=== PATIENT | female | born 1955 | race Caucasian/White ===

== ENCOUNTER 2016-09-16 22:48 | Emergency (ER) | payer BC, OTHER ==
[~2016-09-16] VITALS: Ht 177.8 cm; Wt 109.1 kg
[~2016-09-16 22:48] MED LIST: ALTACE10 M1 PO; ASPIRIN 32325 MG/TA1 PO; ASPIRIN 81M81 MG/TA2 PO; ESTRACE0.5 MG PO; ESTRATEST H.S.1 TAB PO; GLUCOPHAGE1000 MG PO; HCTZ 25MG25 MG PO; METFORMIN500 MG PO; NEXIUM 40MG40 MG PO; NORCO 325 MG-7.1 TAB PO; SYNTHROID0.05 MG PO; SYNTHROID0.075 MG/T PO
[2016-09-16 22:50] VITALS: TEMP 97.7
[2016-09-17] MEDS ORDERED: PREDNISONE20 MG PO (00:28)
[2016-09-17 00:37] VITALS: BP 163/88; PULSE 100
== END 2016-09-17 00:37 | disposition home or self-care (01) ==
LOC: COL.ER 22:48
DX: T78.40XA Allergy, unspecified, initial encounter (principal); R22.0 Localized swelling, mass and lump, head; K03.81 Cracked tooth; I10 Essential (primary) hypertension
CPT/HCPCS: J2930; J7040

== ENCOUNTER → 2017-12-10 | Outpatient (CLI) | payer BC ==
[~2017-12-10] MED LIST changes: +PREDNISONE20 MG PO
== END ==
LOC: MC.RAD 10:34
DX: Z12.31 Encounter for screening mammogram for malignant neoplasm of breast (principal); Z98.890 Other specified postprocedural states

== ENCOUNTER 2018-02-14 10:30 | Outpatient (RCR) | payer BC | END 2018-03-28 12:26 | disposition home or self-care (01) | LOC: WSPT 10:30 | DX: M54.41 Lumbago with sciatica, right side (principal) ==

== ENCOUNTER → 2019-03-02 | Outpatient (CLI) | payer BC | LOC: MC.RAD 14:04 | DX: Z12.31 Encounter for screening mammogram for malignant neoplasm of breast (principal) ==

== ENCOUNTER → 2019-09-06 | Outpatient (CLI) | payer BC | LOC: COL.LAB 08:00 → COL.ER 12:47 | DX: Z11.59 Encounter for screening for other viral diseases (principal) ==

== ENCOUNTER → 2020-03-15 | Outpatient (CLI) | payer BC | LOC: MC.RAD 07:22 | DX: Z12.31 Encounter for screening mammogram for malignant neoplasm of breast (principal); Z98.82 Breast implant status ==

== ENCOUNTER → 2021-04-07 | Outpatient (CLI) | payer BC | LOC: MC.RAD 07:03 | DX: Z12.31 Encounter for screening mammogram for malignant neoplasm of breast (principal) ==

== ENCOUNTER 2021-08-25 06:59 | Day surgery (SDC) | payer BC ==
[~2021-08-25] VITALS: Ht 175.3 cm; Wt 122.3 kg
[2021-08-25 08:20] VITALS: BP 140/85; PULSE 78; TEMP 98.3
[2021-08-25] MEDS ORDERED: AMOXICILLIN 50500 MG PO (08:27)
[2021-08-25] MEDS ORDERED: NEXIUM 40MG40 MG PO (08:28)
[2021-08-25] MEDS ORDERED: HCTZ12.5TAB PO (08:28)
[2021-08-25] MEDS ORDERED: TIROSINT75 MC1 PO (08:29)
[2021-08-25] MEDS ORDERED: GLUCOPHAGE1000 MG PO (08:29)
[2021-08-25] MEDS ORDERED: TOPROL XL 50MG50 MG PO (08:30)
[2021-08-25] MEDS ORDERED: OZEMPIC0.25 MG/0. SQ (08:31)
[2021-08-25 09:30] VITALS: BP 121/75; PULSE 74; TEMP 97.6
--- NOTE | 2021-08-25 09:30 | NUR ---
Pt arrived on cart from procedure. Drowsy but oriented and was able to ambulate from cart to chair with minimal difficulty. Vitals obtained. Verbal report obtained. [place] provided to the patient and her w/ apple juice. Call connell is within reach at bedside table.
[2021-08-25 09:45] VITALS: BP 144/89; PULSE 70
--- NOTE | 2021-08-25 09:45 | NUR ---
Pt has finished her toast and continues to drink her apple juice. Denies nausea. No vomiting. Vitals obtained. Call connell remains within reach.
[2021-08-25 10:00] VITALS: BP 142/71; PULSE 68
--- NOTE | 2021-08-25 10:00 | NUR ---
Vitals obtained. DC instructions and educational material reviewed with the pt and , who verbalized understanding and signed the related paperwork. Pt denied questions or concerns. IV discontinued. Catheter tip intact. Pressure bandage applied. NO redness or swelling noted. Pt denied needing assistance changing into his personal clothes and states she will use call connell when finished. Call connell is within reach at bedside table.
--- NOTE | 2021-08-25 10:15 | NUR ---
Pt was dismissed from [facility] via wheelchair to the patient entence by DAE Queen and transferred into the care of her Fred, who is present to drive. Pt has her DC packet in hand and personal belongings.
== END 2021-08-25 10:15 | disposition home or self-care (01) ==
LOC: SDCO 06:59
DX: Z12.11 Encounter for screening for malignant neoplasm of colon (principal); K21.9 Gastro-esophageal reflux disease without esophagitis; D12.5 Benign neoplasm of sigmoid colon; K64.1 Second degree hemorrhoids; Z87.891 Personal history of nicotine dependence; Z83.71 Family history of colonic polyps
CPT/HCPCS: J2405; J2704; J7030

== ENCOUNTER → 2021-12-21 | Outpatient (CLI) | payer BC ==
[~2021-12-21] VITALS: Ht 175.3 cm; Wt 122.8 kg
[~2021-12-21] MED LIST changes: +AMOXICILLIN 50500 MG PO; +HCTZ12.5TAB PO; +TIROSINT75 MC1 PO; +TOPROL XL 50MG50 MG PO; +TRULICITY0.75 MG/0. SQ
[2021-12-21 15:00] VITALS: BP 139/89; PULSE 75; TEMP 98.4
== END ==
LOC: EUO 12-14 14:51
DX: E61.1 Iron deficiency (principal)
CPT/HCPCS: J1756

== ENCOUNTER → 2022-09-07 | Outpatient (CLI) | payer BC | LOC: MC.RAD 07:10 | DX: Z12.31 Encounter for screening mammogram for malignant neoplasm of breast (principal) ==

== ENCOUNTER → 2023-10-08 | Outpatient (CLI) | payer BC | LOC: MHCPAIN 14:27 | DX: M54.50 Low back pain, unspecified (principal); M43.16 Spondylolisthesis, lumbar region; M54.16 Radiculopathy, lumbar region | CPT/HCPCS: G0463 ==